=== PATIENT | female | born 1950 | race Caucasian/White ===

== ENCOUNTER 2019-05-17 14:07 | Emergency (ER) | payer MEDICARE, BC ==
[~2019-05-17] VITALS: Ht 177.8 cm; Wt 85.0 kg
[~2019-05-17 14:07] MED LIST: ADLT ASA LOW81 MG OR; BLACK COHOS1 PO; CALCIUM +D OR; DEMADEX20 MG OR; DEMADEX20 MG PO; GLUCOSAMINE1 TA1 OR; PREVACID30 M3 PO; PRILOSEC20 MG OR; ROBITUSSIN AC10 ML OR; ZPAK OR; [UNRECOGNIZED DRUG - REMARK]
[2019-05-17] MEDS ORDERED: FOSINOPRIL40 MG PO (14:40)
[2019-05-17] MEDS ORDERED: DEMADEX20 MG PO (14:41)
[2019-05-17] MEDS ORDERED: OMEPRAZOLE10 MG PO (14:42)
[2019-05-17] MEDS ORDERED: LEVOTHYROXIN50 MCG PO (14:43)
[2019-05-17 15:50] VITALS: BP 160/79
== END 2019-05-17 15:50 | disposition home or self-care (01) ==
LOC: ED 14:07
PROC: 2W3RX1Z Immobilization of Left Lower Leg using Splint (ICD-10-PCS; principal; 2019-05-17)
PROC: 2W38X1Z Immobilization of Right Upper Extremity using Splint (ICD-10-PCS; 2019-05-17)
DX: S82.52XA Displaced fracture of medial malleolus of left tibia, initial encounter for closed fracture (principal); S46.811A Strain of other muscles, fascia and tendons at shoulder and upper arm level, right arm, initial encounter; W01.0XXA Fall on same level from slipping, tripping and stumbling without subsequent striking against object, initial encounter; Y92.512 Supermarket, store or market as the place of occurrence of the external cause

== ENCOUNTER 2022-02-04 00:52 | Observation (INO) | payer MEDICARE, BC ==
[2022-02-04] VITALS (14 sets, daily range): BP systolic 127–198; BP diastolic 66–82
[~2022-02-04] VITALS: Ht 177.8 cm; Wt 116.0 kg
[~2022-02-04 00:52] MED LIST changes: +FOSINOPRIL40 MG PO; +LEVOTHYROXIN50 MCG PO; +OMEPRAZOLE DR40 MG PO
--- NOTE | 2022-02-04 00:52 | NUR ---
PT ARRIVED VIA EMS, IN ROOM ON MONITOR, PROVIDER NOTIFIED.
[2022-02-04] MEDS ORDERED: METOPROL TAR25 MG PO (01:04)
[2022-02-04] MEDS ORDERED: GABAPENTIN100 MG PO (01:04)
[2022-02-04] MEDS ORDERED: NORVASC5 M1 PO (01:05)
[2022-02-04] MEDS ORDERED: FLONASE AL50 MCG/ACT (01:05)
[2022-02-04] MEDS ORDERED: AZELASTINE HCL0.15 % (01:06)
[2022-02-04] MEDS ORDERED: ADVAIR HF1 IN (01:06)
[2022-02-04 01:26] LABS: HEMATOCRIT 40.9 % (37.0-47.0); HEMOGLOBIN 12.9 g/dl (12.0-16.0); IMMATURE GRANULOCYTES 0.5 % (0.0-5.0); MEAN CELL VOLUME 87.4 fL CALC (80.0-100.0); MEAN CORPUSCULAR HGB 27.6 pG CALC (26.0-32.0); MEAN CORPUSCULAR HGB CONC 31.5 g/dL CAL (32.0-36.0); NEUT# 3.63 thou/uL (2.00-7.15); RED BLOOD COUNT 4.68 mill/uL (4.20-5.60); RED CELL DISTRI WIDTH 14.1 % (11.5-15.5)
--- NOTE | 2022-02-04 01:27 | NUR ---
PT RESTING QUIETLY IN ROOM, ON MONITOR, WILL CONT TO MONITOR.
[2022-02-04 01:41] LABS: ALBUMIN 3.9 g/dL (3.2-5.0); CREATININE 1.2 mg/dL (0.5-1.0); POTASSIUM 3.8 mmol/l (3.5-5.1); TOTAL PROTEIN 6.9 g/dL (6.3-8.2)
[2022-02-04 01:42] LABS: BILIRUBIN, TOTAL 0.6 mg/dL (0.0-1.4)
--- NOTE | 2022-02-04 01:46 | NUR ---
SPOUSE AT BEDSIDE.
--- NOTE | 2022-02-04 02:27 | NUR ---
PT RETURNED FROM CT SCAN BUT WAS UNABLE TO TOLERATE PAIN OF LAYING FLAT AND CT SCAN WAS NOT CONDUCTED, PROVIDER NOTIFIED.
[2022-02-04] MEDS ORDERED: PERCOCET 10/31 COMBO PO (02:37)
--- NOTE | 2022-02-04 02:38 | NUR ---
PT REPORTS THAT AFTER BACK SURGERY SHE IS UNABLE TO ATTEND TO ADL'S AND IS BEDRIDDEN. PROVIDER NOTIFIED.
--- NOTE | 2022-02-04 03:16 | NUR ---
PT PENDING ADMISSION, WILL CONT TO MONITOR.
--- NOTE | 2022-02-04 03:45 | NUR ---
ASSESSED BANDAGE OVER SURGICAL INCISION ON PATIENTS RT LOWER BACK, DRESSING INTACT, UPON EXPOSING ACTUAL INCISION NO SIGN OF INFECTION WAS FOUND, INCISION WAS INTACT AND STERI STRIPS IN PLACE, NO ACTIVE DRAINAGE OR BLEEDING OBSERVED. BANDAGE RESECURED. ASSESSMENT CONDUCTED BY CARA LÓPEZ RN, AND BENITO RN. NO FURTHER ORDERS CONCERNING SURGICAL INCISION GIVEN.
--- NOTE | 2022-02-04 04:25 | NUR ---
PT RESTING, ON MONITOR, PURWIC PLACED BY CARA ROSA FOR COMFORT, WILL CONTINUE TO MONITOR.
--- NOTE | 2022-02-04 05:53 | NUR ---
PT REPORTS PAIN IS DECREASED TO 1/10 AFTER IV PAIN MEDICATION ADMINISTRATION. PT HAS STABLE VITAL SIGNS, ON MONITOR AND RESTING COMFORTABLY. WILL CONT TO MONITOR.
--- NOTE | 2022-02-04 06:31 | NUR ---
PT RESTING COMFORTABLY, ON MONITOR, WITH NO COMPLAINTS OR NEEDS AT THIS TIME. WILL CONT TO MONITOR.
--- NOTE | 2022-02-04 06:57 | NUR ---
REPORT GIVEN TO JEAN ROSA.
--- NOTE | 2022-02-04 07:15 | NUR ---
ASSUMED CARE OF PT AT THIS TIME
--- NOTE | 2022-02-04 08:06 | NUR ---
MEAL TRAY PROVIDED AT THIS TIME. PT COMFORTBALE. VSS
--- NOTE | 2022-02-04 09:00 | NUR ---
Reassessment of patient completed. No distress noted.
--- NOTE | 2022-02-04 10:00 | NUR ---
Reassessment of patient completed. No distress noted.
--- NOTE | 2022-02-04 11:05 | NUR ---
PT MOVED FROM ER STRETCHER TO INPATIENT BED. PT ABLE TO STAND AND PIVOT TO BED WITH MODERTE DISCOMFORT UP WITH ASSIST
--- NOTE | 2022-02-04 12:30 | NUR ---
PT REPOSTIONED. PT STATES UNABLE TO EAT WHEAT, CALLED FOR NEW LUNCH TRAY
--- NOTE | 2022-02-04 13:30 | NUR ---
Reassessment of patient completed. No distress noted.
--- NOTE | 2022-02-04 14:30 | NUR ---
PT UPDATED ON STATUS AT THIS TIME. TO BE SEEN BY INPATIENT DOCTOR TO DETERMINEIF PT WILL BE D/C'D OR HAVE TO STAY OVERNIGHT.
[2022-02-04] MEDS ORDERED: TIZANIDINE2 MG PO (15:08)
[2022-02-04] MEDS ORDERED: LORTAB 5/3255 MG PO (15:09)
--- NOTE | 2022-02-04 15:38 | NUR ---
D/C instructions given with verbalization of understanding. Pt. discharged home in stable condition.
== END 2022-02-04 15:50 | disposition home or self-care (01) ==
LOC: ED 00:52 → ED-I 02:42 → ED 02:58 → ED-I 02:59
PROVIDERS: Emergency Medicine; ADMIT Internal Medicine; ATTEND Internal Medicine
DX: M54.50 Low back pain, unspecified (principal); I10 Essential (primary) hypertension; Z98.890 Other specified postprocedural states; Z20.822 Contact with and (suspected) exposure to COVID-19
CPT/HCPCS: G0378

== ENCOUNTER 2023-02-13 07:01 | Day surgery (SDC) | payer MEDICARE, BC ==
[~2023-02-13] VITALS: Ht 170.2 cm; Wt 112.0 kg
[~2023-02-13 07:01] MED LIST changes: +ADVAIR HF1 IN; +AZELASTINE HCL0.15 %; +AZELASTINE HYD0.15 %; +CALCIUM600 M1 PO; +D31000 UNIT PO; +FISH OIL1200 MG PO; +FLONASE AL50 MCG/ACT; +GABAPENTIN100 MG PO; +GLUCOSAMINE CHO1 CA1 PO; +LORTAB 5/3255 MG PO; +METOPROL TAR25 MG PO; +NORVASC5 M1 PO; +PERCOCET 10/31 COMBO PO; +SOAANZ20 MG PO; +TIZANIDINE2 MG PO
[2023-02-13 10:59] VITALS: BP 123/69
== END 2023-02-13 09:12 | disposition home or self-care (01) ==
LOC: ORM 07:01
PROVIDERS: ATTEND Surgery
PROC: 0DJD8ZZ Inspection of Lower Intestinal Tract, Via Natural or Artificial Opening Endoscopic (ICD-10-PCS; principal; 2023-02-13)
PROC: 0DJ08ZZ Inspection of Upper Intestinal Tract, Via Natural or Artificial Opening Endoscopic (ICD-10-PCS; 2023-02-13)
DX: Z12.11 Encounter for screening for malignant neoplasm of colon (principal); K57.30 Diverticulosis of large intestine without perforation or abscess without bleeding; K64.8 Other hemorrhoids; K44.9 Diaphragmatic hernia without obstruction or gangrene; K21.9 Gastro-esophageal reflux disease without esophagitis; I10 Essential (primary) hypertension; J45.909 Unspecified asthma, uncomplicated; Z80.0 Family history of malignant neoplasm of digestive organs; Z83.71 Family history of colonic polyps; Z86.010 Personal history of colon polyps
CPT/HCPCS: 43235; G0105